=== PATIENT | female | born 1955 | race Hispanic/Latino ===

== ENCOUNTER 2019-07-28 13:08 | Outpatient (CLI) | payer MEDICARE ==
--- NOTE | 2019-07-28 14:42 | Mammography Report ---
DIGITAL SCREENING MAMMOGRAM WITH CAD, 07/28/2019 INDICATION: Routine screening mammography. Breast cancer survivor status post right partial mastectom y with radiation therapy. TECHNIQUE: Digital bilateral 2D mammography was obtained in the craniocaudal and mediolateral obliq ue projections. This examination was interpreted with the benefit of Computer-Aided Detection analysi s. COMPARISON: None available. However, she indicated that she had a prior mammogram at [facility]. FINDINGS: Breast Density: The breasts are almost entirely fatty. The right breast is smaller than the left. Right upper outer postsurgical scar. Scattered bilateral b enign calcifications. There is no evidence of dominant mass, suspicious calcifications or architectur al distortion in the left breast. IMPRESSION: Right postsurgical changes requiring comparison with a prior mammogram. Recommend obtaini ng a prior mammogram from [facility] for comparison. Follow up recommendation: Obtain prior study for comparison Category 0: Incomplete. Needs additional imaging evaluation and/or prior mammograms for comparison. A "normal" or negative report should not discourage follow up or biopsy of a clinically significant f inding. A written summary of these findings will be mailed to the patient. The patient will be entered into a mammography reporting system which will generate a reminder letter for the patient's next appointmen t at the appropriate interval. The [employer] recommends yearly mammograms starting at age 40 and continuing as l reginaldo as a woman is in good health. Breast MRI is recommended for women with an approximate 20-25% or greater lifetime risk of breast cancer, including women with a strong family history of breast or ova ko cancer or who have been treated for Hodgkin's disease. Signer Name: Agusto Smith MD Signed: 07/28/2019 2:38 PM Workstation Name: [id number]
== END 2019-07-28 13:09 | disposition home or self-care (01) ==
LOC: SPVWC 13:08
PROVIDERS: ATTEND Internal Medicine
DX: Z12.31 Encounter for screening mammogram for malignant neoplasm of breast (principal); N64.89 Other specified disorders of breast; Z90.11 Acquired absence of right breast and nipple
CPT/HCPCS: 77067